=== PATIENT | male | born 1950 | race Caucasian/White ===

== ENCOUNTER 2024-06-10 21:29 | Inpatient (IN) | payer OTHER, MEDICARE ==
[~2024-06-10] VITALS: Ht 180.3 cm; Wt 198.0 kg
[2024-06-10 22:10] VITALS: PULSE 124; RESP 18; O2SAT 99
[2024-06-10 22:52] LABS: Basophils # (auto) 0.1 10 ^3/uL (0-0.2); Basophils % (auto) 0.6 % (0.0-2.0); Eosinophils # (auto) 0.1 10 ^3/uL (0-0.8); Eosinophils % (auto) 0.6 % (0.0-7.0); Hematocrit 44.3 % (41.0-53.0); Hemoglobin 14.7 g/dL (13.5-17.5); Lymphocytes # (auto) 1.2 10 ^3/uL (0.4-5.4); Lymphocytes % (auto) 12.7 % (10.0-50.0); Mean Corpuscular Hemoglobin 26.8 pg (28.0-32.0); Mean Corpuscular Hgb Conc. 33.1 g/dL (32.0-36.0); Mean Corpuscular Volume 80.9 fL (80.0-100.0); Monocytes # (auto) 0.8 10 ^3/uL (0-1.3); Monocytes % (auto) 8.5 % (0.0-12.0); Neutrophils # (auto) 7.3 10 ^3/uL (1.6-8.6); Neutrophils % (auto) 77.6 % (37.0-80.0); Nucleated Red Blood Cells % 0.2 %; Platelet Count (auto) 250 10^3/uL (140-450); Red Blood Cells 5.47 10^6/uL (4.5-5.90); Red Cell Distribution Width 16.8 % (11.8-14.3); White Blood Cell 9.5 10^3/uL (4.4-10.8)
[2024-06-10 23:07] LABS: INR 1.41 (0.9-1.15); Prothrombin Time 14.4 sec (9.3-11.8)
[2024-06-10 23:11] LABS: Alanine Aminotransferase 22 U/L (7-40); Anion Gap 8 (5-15); Aspartate Aminotransferase 26 U/L (13-40); BUN/Creatinine Ratio 10.2 (10.0-20.0); Blood Urea Nitrogen 12 mg/dL (9-23); Calcium 9.6 mg/dL (8.7-10.4); Carbon Dioxide 24 mmol/L (20-31); Magnesium 1.9 mg/dL (1.6-2.6); Sodium 143 mmol/L (136-145)
[2024-06-10 23:12] LABS: Alkaline Phosphatase 142 U/L (46-116); Bilirubin, Total 1.5 mg/dL (0.2-1.0); Chloride 111 mmol/L (98-107); Glucose 130 mg/dL (74-106)
[2024-06-10 23:13] LABS: Blood Alcohol < 3.0 mg/dL (<10)
--- NOTE | 2024-06-10 23:37 | DVH ---
CHEST RADIOGRAPH Indication: Dyspnea, generalized weakness Technique: Single frontal view of the chest was obtained Comparison: None FINDINGS: Lines and Tubes: None Lungs: No focal consolidation. Pleura: No effusion. No pneumothorax. Cardiomediastinal contours: cardiomegaly Bones: No acute osseous abnormality. IMPRESSION: cardiomegaly [facility]
[2024-06-10] MEDS: dilTIAZem 25 MG/5 ML VIAL IV ONE (23:47)
[2024-06-10 23:49] LABS: Rapid Influenza A Negative (Negative); Rapid Influenza B Negative (Negative)
[2024-06-10 23:50] LABS: COVID19 ANTIGEN SOFIA FIA NEGATIVE (NEGATIVE)
[2024-06-11] MEDS: dilTIAZem 125mg/125ml BAG KIT 125 ML IV ONE
[2024-06-11] MEDS: SODIUM CHLORIDE 0.9% 500 ML IV ONE (00:04)
--- NOTE | 2024-06-11 00:19 | ED.PDOC ---
History of Present Illness HPI Comments This is a 73-year-old morbidly obese male, with a reported history of previous PE's with Eliquis , hyperlipidemia and cellulitis. Patient denies any other significant past medical history. Patient brought in by ambulance for complaint of shortness of breath with exertion and generalized weakness for the past 4 days, today. Per EMS report, spouse called on patient's behalf, due to ongoing symptoms for the past 4 days following unprovoked and gradual onset in addition to being unable to assist patient out of his recliner. He reported to have been found on scene in AFib RVR, with a rate fluctuating between the 90s to 170s range, in addition to being tachypneic and having a SpO2 of 92% on room air. Patient's remaining vitals were stated to be stable and within normal limits. He was placed on oxygen EN route, with noted improved SpO2 of 97% upon arrival to ED. at time of initial assessment, patient further comments on being sick, recently, with shortness of breath and nonproductive cough, that worsened within the past four days, with additional onset of weakness, which refrained him to use his wheelchair to move around. Patient also informs on recent mice infestation in his home, with endorsement of mice feces and urine exposure. He denies having any chest pain, congestion, fever, chills, nausea, vomiting, or o ther associated symptoms or modifiers at this time. Chief Complaint: Shortness of Breath Time Seen by MD: 21:39 Reviewed Notes: Nurses Notes, Ux Designer Notes, Medications, Allergies Allergies: Coded Allergies: Morphine (Verified Allergy, Unknown, 06/10/24) Information Source: Patient, Emergency Med Personnel Mode of Arrival: EMS Severity: Moderate Timing: Days Duration: Since onset Prehospital treatment: 12 Lead EKG, Accucheck, Construction Trench Digger, Oxygen Review of Systems: REVIEW OF SYSTEMS: No fever, no chills, or fatigue HEENT: No sore throat, no earache, no congestion, no neck pain. Cardiac: No chest pain. No palpitations. Lungs: shortness of breath, no cough. GI: No nausea, no vomiting, no diarrhea, no constipation, no abdominal pain : No dysuria, frequency, or urgency. No hematuria. Musculoskeletal: No joint pain , no joint swelling, no extremity edema. Skin: No rash, no itching. Neuro: Weakness, no headache, no dizziness Vital Signs Vital Signs Date Time Temp Pulse Resp B/P (MAP) Pulse Ox O2 Delivery O2 Flow Rate FiO2 06/11/24 02:23 152/94 06/11/24 01:46 101 06/11/24 00:00 18 98 06/10/24 21:29 98.2 Physical Exam General: Awake, alert and oriented. No acute distress. Morbidly obese Skin: Skin in warm, dry and intact. Appropriate color for ethnicity. HEENT: The head is normocephalic and atraumatic. Conjunctivae are clear without exudates or hemorrhage. Sclera is non-icteric. EOM are intact. No signs of nystagmus. Eyelids are normal in appearance without swelling or lesions. Oral mucosa is pink and moist Neck: The neck is supple with normal range of motion. No JVD. Cardiac: Heart rate and rhythm are normal. No murmurs, gallops, or rubs are auscultated. Respiratory: No signs of respiratory distress. Lung sounds are clear in all lobes bilaterally without rales, ronchi, or wheezes. Abdominal: Abdomen is soft, non-tender without distention. Bowel sounds are present and normoactive in all four quadrants. Extremities: Upper and lower extremities are atraumatic in appearance without deformity or edema. Neurological: The patient is awake, alert and oriented to person, place, and time with normal speech. Speech is clear. There is no facial asymmetry. Psychiatric: Appropriate mood and affect. Good judgement and insight. No visual or auditory hallucinations. Past Medical History PAST MEDICAL HISTORY: High Lipids, PE Past Medical History (Other): Morbid obesity Surgical History: Denies all surgeries Family History Family History: Unknown Social History Smoker: Non-Smoker Alcohol: Denies ETOH Use Drugs: Denies Drug Use Lives In: Home, Assisted Care Was a procedure done? Was a procedure done?: No EKG EKG #1: Pulse Rate (adult): 135 [place]: Normal Cardiac Rhythm: Afib Block: None Hypertrophy: None ST: Normal EKG #2: Pulse Rate (adult): 125 [place]: Normal Cardiac Rhythm: ST Block: None Hypertrophy: None ST: Normal EKG #3: Pulse Rate (adult): 101 [place]: Normal Cardiac Rhythm: ST Block: None Hypertrophy: None ST: Normal Differential Dx Considerations may include: New onset AFib, electrolyte imbalance, viral syndrome, dehydration, UTI, URI, pneumonia, among others X-Ray, Labs, Meds, VS Vital Signs Date Time Temp Pulse Resp B/P (MAP) Pulse Ox O2 Delivery O2 Flow Rate FiO2 06/11/24 02:23 152/94 06/11/24 01:46 101 06/11/24 00:22 101 06/11/24 00:00 94 18 123/84 (97) 98 06/11/24 00:00 145/79 06/11/24 00:00 94 06/10/24 22:27 125 06/10/24 22:09 124 18 119/79 (92) 99 06/10/24 21:35 135 06/10/24 21:29 98.2 152 24 132/91 (105) 97 Lab Test 06/11/24 01:48 06/11/24 00:24 06/10/24 23:20 06/10/24 23:13 Range/Units Troponin I High Sensitivity 26 28 </=54 ng/L Blood Gas Specimen Type Arterial Blood Gas Sample Site Right radial Blood Gas Patient Temperature 37.0 Arterial Blood Date Drawn [id number] Arterial Blood pH 7.409 7.350-7.450 Arterial Blood Partial Pressure CO2 34.8 L 35.0-48.0 mmHg Arterial Blood Partial Pressure O2 74.9 L 83.0-108.0 mmHg Arterial Blood HCO3 21.5 21.0-28.0 mmol/L Arterial Blood Oxygen Saturation 94.5 94.0-98.0 % Arterial Blood Base Excess -2.4 L -2.0-3.0 mmol/L Arterial Blood Oxyhemoglobin 92.6 L 94.0-98.0 % Arterial Blood Carboxyhemoglobin 1.4 0.5-1.5 % Arterial Blood Methemoglobin 0.6 0.0-1.5 % Devante Test Modified Blood Gas Total Hemoglobin 15.40 13.5-17.5 g/dL Blood Gas Liter Flow 2.00 Blood Gas Modality Nasal cannula FiO2 % 24.0 Urine Color Yellow Yellow Urine Clarity Turbid H Clear Urine pH 5.0 5.0-9.0 Urine Specific [place] 1.029 1.001-1.035 Urine Protein 1+ H Negative Urine Ketones Trace Negative Urine Blood 2+ H Negative /uL Urine Nitrite Negative Negative Urine Bilirubin Negative Negative Urine Urobilinogen Normal Negative mg/dL Urine Leukocyte Esterase Negative Negative /uL Urine RBC 240 0 - 3 /hpf Urine Microscopic WBC 2 0-3 /HPF Urine Squamous Epithelial Cells Mod <5 /hpf Urine Bacteria Few H None Seen /hpf Urine Mucus Few None Seen Urine Glucose Normal Normal mg/dL Urine Opiates Screen Neg NEGATIVE Urine Fentanyl Screen Neg NEGATIVE Urine Barbiturates Screen Neg NEGATIVE Urine Phencyclidine Screen Neg NEGATIVE Urine Amphetamines Screen Neg NEGATIVE Urine Benzodiazepines Screen Neg NEGATIVE Urine Cocaine Screen Neg NEGATIVE Urine Cannabinoids Screen Pos NEGATIVE Influenza Type A Antigen Negative Negative Influenza Type B Antigen Negative Negative SARS-CoV-2 Antigen (Rapid) Negative NEGATIVE Test 06/10/24 22:35 Range/Units White Blood Count 9.5 4.4-10.8 10^3/uL Red Blood Count 5.47 4.5-5.90 10^6/uL Hemoglobin 14.7 13.5-17.5 g/dL Hematocrit 44.3 41.0-53.0 % Mean Corpuscular Volume 80.9 80.0-100.0 fL Mean Corpuscular Hemoglobin 26.8 L 28.0-32.0 pg Mean Corpuscular Hemoglobin Concent 33.1 32.0-36.0 g/dL Red Cell Distribution Width 16.8 H 11.8-14.3 % Platelet Count 250 140-450 10^3/uL Mean Platelet Volume 9.6 6.9-10.8 fL Neutrophils (%) (Auto) 77.6 37.0-80.0 % Lymphocytes (%) (Auto) 12.7 10.0-50.0 % Monocytes (%) (Auto) 8.5 0.0-12.0 % Eosinophils (%) (Auto) 0.6 0.0-7.0 % Basophils (%) (Auto) 0.6 0.0-2.0 % Neutrophils # (Auto) 7.3 1.6-8.6 10 ^3/uL Lymphocytes # (Auto) 1.2 0.4-5.4 10 ^3/uL Monocytes # (Auto) 0.8 0-1.3 10 ^3/uL Eosinophils # (Auto) 0.1 0-0.8 10 ^3/uL Basophils # (Auto) 0.1 0-0.2 10 ^3/uL Nucleated Red Blood Cells 0.2 % Prothrombin Time 14.4 H 9.3-11.8 sec Prothrombin Time INR 1.41 H 0.9-1.15 Sodium Level 143 136-145 mmol/L Potassium Level 4.0 3.5-5.1 mmol/L Chloride Level 111 H 98-107 mmol/L Carbon Dioxide Level 24 20-31 mmol/L Anion Gap 8 5-15 Blood Urea Nitrogen 12 9-23 mg/dL Creatinine 1.18 0.700-1.30 mg/dL Glomerular Filtration Rate Calc 65 >90 mL/min BUN/Creatinine Ratio 10.2 10.0-20.0 Serum Glucose 130 H 74-106 mg/dL Lactic Acid Level 1.6 0.4-2.0 mmol/L Calcium Level 9.6 8.7-10.4 mg/dL Magnesium Level 1.9 1.6-2.6 mg/dL Total Bilirubin 1.5 H 0.2-1.0 mg/dL Aspartate Amino Transferase (AST) 26 13-40 U/L Alanine Aminotransferase (ALT) 22 7-40 U/L Alkaline Phosphatase 142 H 46-116 U/L Troponin I High Sensitivity 30 </=54 ng/L B-Type Natriuretic Peptide 294.26 0-100 pg/mL Total Protein 7.0 5.7-8.2 g/dL Albumin 4.0 3.2-4.8 g/dL Thyroid Stimulating Hormone (TSH) 1.86 0.55-4.78 uIU/mL Plasma/Serum Blood Alcohol < 3.0 <10 mg/dL Current Medications Medications (Trade) Dose Ordered Sig/Nidia Route Start Time Stop Time Status Last Admin Sodium Chloride 500 ml @ 500 mls/hr Q1H ONCE IV 06/10/24 22:15 06/10/24 23:14 DC 06/11/24 00:04 Diltiazem HCl (Cardizem Injection) 15 mg ONCE ONCE IV 06/10/24 23:30 06/10/24 23:31 DC 06/10/24 23:47 Furosemide (Lasix Injection) 40 mg ONCE ONCE IV 06/11/24 01:00 06/11/24 01:01 DC 06/11/24 02:23 Amiodarone HCl 100 ml @ 600 mls/hr ONCE ONCE IV 06/11/24 03:00 06/11/24 03:09 DC 06/11/24 03:18 Time of 1ST Reevaluation: 22:11 Reevaluation 1ST: Unchanged Patient Education/Counseling: Diagnosis, Treatment Family Education/Counseling: No Family Present Departure 1 Departure Time of Disposition: 00:17 Impression: Primary Impression: New onset a-fib Additional Impressions: Generalized weakness Inability to walk Congestive heart failure Disposition: ADMITTED INPATIENT Condition: Stable Comments 73-year-old male with history of PE, on Eliquis presents to the emergency department with 4 days of generalized weakness, unable to ambulate. He was found to be in new onset rapid AFib with a heart rate of 130s on arrival to the emergency department. No history of AFib. Patient's heart rate converted to sinus after Cardizem bolus. Further workup revealed cardiomegaly, changes suggestive of CHF on chest x-ray as well as mildly elevated BNP. IV Lasix was administered. Patient admitted for further treatment, evaluation and mon itoring. Suspect possible viral pulmonary infection. Extensive evaluation was performed in attempt to identify or rule out: (See differential diagnosis section) The following tests were ordered, and results were reviewed by me: (See diagnostic results section) The following test were independently interpreted by me: N/A I reviewed and agreed with the following test results read by other providers: N/A I reviewed the following notes from the pt's past medical encounters: N/A Additional information was gathered from interviewing the following independent historians: EMS Discussion of management or test interpretation with external physician/other qualified health acute care nurse practitioner: EMS personnel Addressed an acute or chronic illness that poses a threat to life or bodily function: AFib with RVR, CHF exacerbation Decision regarding hospitalization or escalation of hospital level of care: Risk and benefits of admission for further treatment of patient's condition was considered. Due to patient's current clinical condition, high risk of decline and poor outcome if discharged and need for further inpatient management and monitoring, patient will be admitted to the hospital. Drug therapy requiring intensive monitoring for toxicity: IV amiodarone, IV Cardizem, IV Lasix Parenteral controlled substances: N/A Decision regarding elective major surgery with identified patient or procedure risk factors: N/A Decision regarding emergency major surgery: N/A Decision not to resuscitate or to de-escalate care because of poor prognosis: N/A Diagnosis or treatment significantly limited by social determinants of health: N/A Critical Care Note Critical Care Time?: No Stability Stability form required: No Heart Score Heart Score: Heart Score Response (Comments) Value History Moderate Suspicious 1 EKG N/A 0 Age >65 2 Risk Factors >3 or Hx ASHD 2 Troponin Normal limit 0 Total 5 I personally scribed for JOVITA FREITAS MD ([email or web address]) on 06/11/24 at 01:46. Electronically submitted by Jesus Goldberg ([email or web address]). JOVITA FREITAS MD Jun 11, 2024 00:19
[2024-06-11 00:34] LABS: Base Excess -2.4 mmol/L (-2.0-3.0)
[2024-06-11 02:12] LABS: Cannabinoid Screen, Urine Pos (NEGATIVE)
[2024-06-11] MEDS: FUROSEMIDE 40 MG/4 ML VIAL IV ONE (02:23)
[2024-06-11 02:27] LABS: Amphetamine Screen, Urine Neg (NEGATIVE); Barbiturate Scree,Urine Neg (NEGATIVE); Benzodiazephine Screen, Urine Neg (NEGATIVE); Cocaine Screen, Urine Neg (NEGATIVE); Opiate Scree,Urine Neg (NEGATIVE); Phencyclidine Screen, Urine Neg (NEGATIVE)
[2024-06-11 02:29] LABS: Urine Bacteria FEW /hpf (None Seen); Urine Blood 2+ /uL (Negative); Urine Clarity Turbid (Clear); Urine Color Yellow (Yellow); Urine Mucus FEW (None Seen); Urine Protein, UAD 1+ (Negative); Urine Specific Gravity 1.029 (1.001-1.035); Urine Squamous Epithelial Cell MOD /hpf (<5); Urine Urobilinogen Normal (Negative); Urine WBC 2 /HPF (0-3)
[2024-06-11] MEDS: AMIODARONE BOLUS KIT 100 ML IV ONE (03:18)
[2024-06-11] MEDS ORDERED: ONDANSETRON HCL 4 MG/2 ML VIAL IV PRN (03:45)
[2024-06-11] MEDS ORDERED: NITROGLYCERIN 0.4 MG SL TAB SL PRN (03:45)
[2024-06-11] MEDS ORDERED: MORPHINE SULFATE INJ 2 MG/ml SYRG IV PRN (03:45)
[2024-06-11] MEDS ORDERED: ACETAMINOPHEN 325 MG TAB PO PRN (03:45)
--- NOTE | 2024-06-11 03:54 | ECG ---
[facility] Test Date: 2024-06-10 Test Time: 21:35:46 Pat Name: FEROZ FLORES Department: ER Room: 0214T Gender: M Chief Of Service: CMR : 1950 Requested By: JOVITA FREITAS Order Number: [id number] Reading MD: Jl Menezes Measurements Intervals Watson Rate: 135 P: 0 HI: 0 QRS: 189 QRSD: 102 T: 52 QT: 331 QTc: 497 Interpretive Statements Atrial fibrillation Anterior infarct, old Electronically Signed On 06-15-2024 22:59:24 PDT by Jl Menezes Please click the below link to view image of tracing.
--- NOTE | 2024-06-11 03:55 | ECG ---
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
[2024-06-11] MEDS: AMIODARONE 360mg/200mL PREMIX 200 ML IV ONE (04:23)
--- NOTE | 2024-06-11 04:28 | DVHHP2 ---
History of Present Illness Reason for Visit: Shortness for breath History of Present Illness 73-year-old male presents for evaluation of shortness for breath has been ongoing for the past four days. He reports generalized weakness and occasional palpitations. On arrival patient was noted to be in AFib with RVR in the 160s. Patient was saturating in the low 90s on room air. Denies fever or chills. Patient with a history of pulmonary embolism currently on Eliquis. No other acute complaints. Past Medical History Dyslipidemia and pulmonary embolism Past Surgical History None Family History Noncontributory Smoke: No ALCOHOL: none Drugs: None Lives: with Family Review of Systems Review of Systems Review of systems are currently negative otherwise addressed in HPI. Allergies: Coded Allergies: Morphine (Verified Allergy, Unknown, 06/10/24) Medications Current Medications Medications Dose Ordered Sig/Nidia Route Start Time Stop Time Status Last Admin Dose Admin Furosemide 40 mg DAILY PO 06/11/24 10:00 Ondansetron HCl 4 mg Q4HP PRN IV 06/11/24 03:45 Acetaminophen 650 mg Q6HP PRN PO 06/11/24 03:45 Nitroglycerin 0.4 mg Q5MINP PRN SL 06/11/24 03:45 Morphine Sulfate 2 mg Q30M PRN IV 06/11/24 03:45 UNV Exam Vital Signs Vital Signs Date Time Temp Pulse Resp B/P (MAP) Pulse Ox O2 Delivery O2 Flow Rate FiO2 06/11/24 02:23 152/94 06/11/24 01:46 101 06/11/24 00:00 18 98 06/10/24 21:29 98.2 Exam Gen: 73-year-old male in mild distress, morbidly obese. Skin: Warm, dry, normal color and texture, no rash. HEENT: Normocephalic atraumatic, mucous membranes moist and pink. Neck: Cervical and supraclavicular nodes normal without enlargement, trachea is midline, thyroid gland is normal without masses. Pulmonary: Clear to auscultation and percussion bilaterally. Cardiac: Irregular rhythm Abdomen: Soft, nontender, nondistended, bowel sounds present all 4 quadrants, no guarding, no rigidity, no organomegaly. Extremities: No cyanosis, clubbing, no edema Neuro: Cranial nerves II through XII grossly intact, normal affect and speech, no focal motor deficits. Labs/Xrays ORDERING PHYSICIAN: JOVITA FREITAS MD PROCEDURE(s): CXR1 - CHEST XRAY 1 VIEW REASON: Dyspnea, generalized weakness ORDER NUMBER(s): [id number], ACCESSION NUMBER(s): [id number] CHEST RADIOGRAPH Indication: Dyspnea, generalized weakness Technique: Single frontal view of the chest was obtained Comparison: None FINDINGS: Lines and Tubes: None Lungs: No focal consolidation. Pleura: No effusion. No pneumothorax. Cardiomediastinal contours: cardiomegaly Bones: No acute osseous abnormality. IMPRESSION: cardiomegaly [facility] Labs Test 06/11/24 01:48 06/11/24 00:24 06/10/24 23:13 06/10/24 22:35 Range/Units Troponin I High Sensitivity 26 </=54 ng/L Blood Gas Specimen Type Arterial Blood Gas Sample Site Right radial Blood Gas Patient Temperature 37.0 Arterial Blood Date Drawn [id number] Arterial Blood pH 7.409 7.350-7.450 Arterial Blood Partial Pressure CO2 34.8 L 35.0-48.0 mmHg Arterial Blood Partial Pressure O2 74.9 L 83.0-108.0 mmHg Arterial Blood HCO3 21.5 21.0-28.0 mmol/L Arterial Blood Oxygen Saturation 94.5 94.0-98.0 % Arterial Blood Base Excess -2.4 L -2.0-3.0 mmol/L Arterial Blood Oxyhemoglobin 92.6 L 94.0-98.0 % Arterial Blood Carboxyhemoglobin 1.4 0.5-1.5 % Arterial Blood Methemoglobin 0.6 0.0-1.5 % Devante Test Modified Blood Gas Total Hemoglobin 15.40 13.5-17.5 g/dL Blood Gas Liter Flow 2.00 Blood Gas Modality Nasal cannula FiO2 % 24.0 Urine Color Yellow Yellow Urine Clarity Turbid H Clear Urine pH 5.0 5.0-9.0 Urine Specific [place] 1.029 1.001-1.035 Urine Protein 1+ H Negative Urine Ketones Trace Negative Urine Blood 2+ H Negative /uL Urine Nitrite Negative Negative Urine Bilirubin Negative Negative Urine Urobilinogen Normal Negative mg/dL Urine Leukocyte Esterase Negative Negative /uL Urine RBC 240 0 - 3 /hpf Urine Microscopic WBC 2 0-3 /HPF Urine Squamous Epithelial Cells Mod <5 /hpf Urine Bacteria Few H None Seen /hpf Urine Mucus Few None Seen Urine Glucose Normal Normal mg/dL Urine Opiates Screen Neg NEGATIVE Urine Fentanyl Screen Neg NEGATIVE Urine Barbiturates Screen Neg NEGATIVE Urine Phencyclidine Screen Neg NEGATIVE Urine Amphetamines Screen Neg NEGATIVE Urine Benzodiazepines Screen Neg NEGATIVE Urine Cocaine Screen Neg NEGATIVE Urine Cannabinoids Screen Pos NEGATIVE Influenza Type A Antigen Negative Negative Influenza Type B Antigen Negative Negative SARS-CoV-2 Antigen (Rapid) Negative NEGATIVE White Blood Count 9.5 4.4-10.8 10^3/uL Red Blood Count 5.47 4.5-5.90 10^6/uL Hemoglobin 14.7 13.5-17.5 g/dL Hematocrit 44.3 41.0-53.0 % Mean Corpuscular Volume 80.9 80.0-100.0 fL Mean Corpuscular Hemoglobin 26.8 L 28.0-32.0 pg Mean Corpuscular Hemoglobin Concent 33.1 32.0-36.0 g/dL Red Cell Distribution Width 16.8 H 11.8-14.3 % Platelet Count 250 140-450 10^3/uL Mean Platelet Volume 9.6 6.9-10.8 fL Neutrophils (%) (Auto) 77.6 37.0-80.0 % Lymphocytes (%) (Auto) 12.7 10.0-50.0 % Monocytes (%) (Auto) 8.5 0.0-12.0 % Eosinophils (%) (Auto) 0.6 0.0-7.0 % Basophils (%) (Auto) 0.6 0.0-2.0 % Neutrophils # (Auto) 7.3 1.6-8.6 10 ^3/uL Lymphocytes # (Auto) 1.2 0.4-5.4 10 ^3/uL Monocytes # (Auto) 0.8 0-1.3 10 ^3/uL Eosinophils # (Auto) 0.1 0-0.8 10 ^3/uL Basophils # (Auto) 0.1 0-0.2 10 ^3/uL Nucleated Red Blood Cells 0.2 % Prothrombin Time 14.4 H 9.3-11.8 sec Prothrombin Time INR 1.41 H 0.9-1.15 Sodium Level 143 136-145 mmol/L Potassium Level 4.0 3.5-5.1 mmol/L Chloride Level 111 H 98-107 mmol/L Carbon Dioxide Level 24 20-31 mmol/L Anion Gap 8 5-15 Blood Urea Nitrogen 12 9-23 mg/dL Creatinine 1.18 0.700-1.30 mg/dL Glomerular Filtration Rate Calc 65 >90 mL/min BUN/Creatinine Ratio 10.2 10.0-20.0 Serum Glucose 130 H 74-106 mg/dL Lactic Acid Level 1.6 0.4-2.0 mmol/L Calcium Level 9.6 8.7-10.4 mg/dL Magnesium Level 1.9 1.6-2.6 mg/dL Total Bilirubin 1.5 H 0.2-1.0 mg/dL Aspartate Amino Transferase (AST) 26 13-40 U/L Alanine Aminotransferase (ALT) 22 7-40 U/L Alkaline Phosphatase 142 H 46-116 U/L B-Type Natriuretic Peptide 294.26 0-100 pg/mL Total Protein 7.0 5.7-8.2 g/dL Albumin 4.0 3.2-4.8 g/dL Thyroid Stimulating Hormone (TSH) 1.86 0.55-4.78 uIU/mL Plasma/Serum Blood Alcohol < 3.0 <10 mg/dL Assessment/Plan Assessment/Plan Assessment AFib with RVR, new onset Possible congestive heart failure history of pulmonary embolism with a secondary coagulopathy Morbid obesity Plan Admit the patient to ICU hospitalist Continue diltiazem drip Resume home medications Cardiology consultation Continue treatment per orders. Plan discussed with: Patient My Orders Orders - MIKE UPTON Procedure Category Date Status Time * Cardiology Consult CONS 06/11/24 Transmitted 03:45 Basic Metabolic Panel LAB 06/12/24 Verified 04:00 Furosemide Tablet PHA 06/11/24 In Process (Lasix Tablet) 10:00 Admit ADMIT 06/11/24 Transmitted 03:45 Ondansetron Hcl PHA 06/11/24 In Process (Zofran) 03:45 Cardiac DIET 06/11/24 Transmitted Diet-2gna,Lofat,Lochol Breakfast Echo 2d Mode Cardiac US 06/11/24 Logged DOP 03:45 Condition: Serious SAUL 06/11/24 In Process 03:45 Acetaminophen Tablet PHA 06/11/24 In Process (Tylenol Tablet) 03:45 Bedrest With Bathroom [facility] 06/11/24 In Process Privileg 03:45 Nitroglycerin [facility] 06/11/24 In Process Sublingual (Ntrostat 03:45 Morphine Sulfate [facility] 06/11/24 Pending Injection 03:45 Stat Ekg For Chest [facility] 06/11/24 In Process Pain 03:45 Notify Md Of Changes [facility] 06/11/24 In Process From Base 03:45 Spring Assembler Supervisor For [facility] 06/11/24 In Process 24 Hours 03:45 Emergency Dysrhythmia [facility] 06/11/24 In Process Protocol 03:45 Rhythm Strips Once [facility] 06/11/24 In Process Every Shift 03:45 Oxygen By Nasal RT 06/11/24 Transmitted Cannula 03:45 Date of Service: Jun 11, 2024 Billing Provider: MIKE UPTON Common Visit Codes: [id number] CARE 30-74 MIN MIKE UPTON Jun 11, 2024 04:28
[2024-06-11] MEDS: GABAPENTIN 100 MG CAP PO SCH (06:07)
[2024-06-11] MEDS: FUROSEMIDE 40 MG TAB PO SCH (10:27)
[2024-06-11] MEDS: APIXABAN 5 MG TAB PO SCH (10:27)
--- NOTE | 2024-06-11 11:32 | DVHINCON2 ---
VAHID GRIJALVA [facility] 06/11/24 1132: Date Seen: Jun 11, 2024 Referring Physician LOLITA Restrepo Reason for Consultation A-fib with RVR History of Present Illness This is a pleasant 73-year-old man who presented to the emergency room via EMS with a chief complaint of shortness of breath for one month. The patient complains of progressive shortness of breath associated with nonproductive cough, PND, VELAZQUEZ, dizziness, and bilateral lower extremity edema/erythema. Denies chest pain, palpitations, diaphoresis, or syncopal events. He underwent multiple 12 lead electrocardiograms revealing an atrial fibrillation rhythm with rapid ventricular rate up to 135 bpm. Serial troponin levels are negative. Denies following up with a cash clerk in the outpatient setting. Significant medical history includes history of bilateral PE diagnosed in 2011 with initial warfarin therapy and transitioned to Xarelto 20 mg HS, dyslipidemia, THAO with CPAP HS with discontinuation three weeks ago, benign prostatic hyperplasia, peripheral neuropathy, cannabinoid use, and morbid obesity. Past Medical History Past medical history reviewed. No other significant than mentioned above. Past Surgical History Left knee x2 Right knee x1 Right carpal tunnel Family History Family history reviewed. Social History Denies the use of alcohol or tobacco use. Admits to cannabinoid use. Allergies: Coded Allergies: Morphine (Verified Allergy, Unknown, 06/10/24) Home Meds Reported Medications Atorvastatin Calcium (ATORVASTATIN CALCIUM) 40 Mg Tab, 1 TAB PO DAILY, #30 TAB 5 Refills 06/11/24 Cyclobenzaprine Hcl (Cyclobenzaprine Hcl) 10 Mg Tab, 5 MG PO Q8HP PRN for FOR MUSCLE SPASM, MG 06/11/24 Rivaroxaban (XARELTO) 20 Mg Tab, 20 MG PO DAILY, TAB 06/11/24 Pregabalin (Lyrica) 100 Mg Cap, 1 CAP PO TID, #90 CAP 06/11/24 Trazodone Hcl (Trazodone Hcl) 50 Mg Tab, 50 MG PO Q8HPRN PRN for PAIN SCALE 1 THRU 6, MG 06/11/24 Tamsulosin Hcl (Tamsulosin Hcl) 0.4 Mg Cap, 0.4 MG PO QPM for 30 Days, MG 06/11/24 Potassium Citrate (Potassium Citrate) 1,080 Mg Tab, 2 TAB PO BID, #360 TAB 3 Re fills 06/11/24 Duloxetine HCl (Duloxetine HCl) 30 Mg Cap, 30 MG PO DAILY, CAP 06/11/24 Rivaroxaban (Xarelto Tablet) 20 Mg Tb, 20 MG PO DAILY, TAB 06/11/24 Home Meds Home medications reviewed. Current Medications Current Medications Medications (Trade) Dose Ordered Sig/Nidia Route PRN Reason Start Time Stop Time Status Last Admin Furosemide (Lasix Tablet) 40 mg DAILY PO 06/11/24 10:00 06/11/24 10:27 Ondansetron HCl (Zofran) 4 mg Q4HP PRN IV NAUSEA / VOMITING 06/11/24 03:45 Acetaminophen (Tylenol Tablet) 650 mg Q6HP PRN PO PAIN SCALE 1-3 OR TEMP>100.4 06/11/24 03:45 Nitroglycerin (Ntrostat Sublingual) 0.4 mg Q5MINP PRN SL FOR CHEST PAIN 06/11/24 03:45 Morphine Sulfate 2 mg Q30M PRN IV FOR CHEST PAIN 06/11/24 03:45 Hold Apixaban (Eliquis) 5 mg BID PO 06/11/24 10:00 06/11/24 10:27 Atorvastatin Calcium (Lipitor) 40 mg HS PO 06/11/24 22:00 Gabapentin (Neurontin Capsule) 100 mg TID PO 06/11/24 06:00 06/11/24 06:07 Review of Systems Constitutional: No symptom reported Ears, Nose, & Throat: No symptom reported Eyes: No symptom reported Neurological: No symptoms reported Pulmonary/Respiratory: SOB, VELAZQUEZ, PND, BLE edema Cardiovascular: No symptom reported Gastrointestinal: No symptom reported Genitourinary: No symptom reported Musculoskeletal: No symptom reported Skin: BLE erythema Psychiatric: No symptom reported Endocrine: No symptom reported Hemotologic/Lymphatic: No symptom reported Vital Signs Vital Signs Date Time Temp Pulse Resp B/P (MAP) Pulse Ox O2 Delivery O2 Flow Rate FiO2 06/11/24 10:27 145/97 06/11/24 09:00 115 15 96 06/11/24 08:54 Room Air* 0 21 Physical Exam General Appearance: Cooperative. Well developed. Morbidly obese. Mild acute respiratory distress Head Exam: Normal inspection Neck Exam: Normal inspection. Non-tender. Normal alignment Pulmonary/Respiratory: Chest non-tender. Crackles to bilateral breath sounds Cardiovascular/Chest: Irregularly irregular rate and rhythm. AFib 100s bpm. No murmurs. No JVD. Peripheral Pulses: 2+ Radial (R). 2+ Radial (L). 2+ Pedal (R). 2+ Pedal (L) Abdominal Exam: Normal bowel sounds. Soft. Nontender. Ankle Exam: Positive ankle edema, nonpitting Lower extremities: Positive lower extremity edema, nonpitting Neuro/Mental Status: A&O x4. Coherent Thoughts/Psych: Normal thought pattern. Appropriate mood and affect. Good judgement and insight Appearance: Mild acute respiratory distress Skin Exam: BLE erythema and wounds present. See wound care pictures Labs/Diagnostic Data Labs Test 06/11/24 01:48 06/11/24 00:24 06/10/24 23:13 06/10/24 22:35 Range/Units Troponin I High Sensitivity 26 </=54 ng/L Blood Gas Specimen Type Arterial Blood Gas Sample Site Right radial Blood Gas Patient Temperature 37.0 Arterial Blood Date Drawn [id number] Arterial Blood pH 7.409 7.350-7.450 Arterial Blood Partial Pressure CO2 34.8 L 35.0-48.0 mmHg Arterial Blood Partial Pressure O2 74.9 L 83.0-108.0 mmHg Arterial Blood HCO3 21.5 21.0-28.0 mmol/L Arterial Blood Oxygen Saturation 94.5 94.0-98.0 % Arterial Blood Base Excess -2.4 L -2.0-3.0 mmol/L Arterial Blood Oxyhemoglobin 92.6 L 94.0-98.0 % Arterial Blood Carboxyhemoglobin 1.4 0.5-1.5 % Arterial Blood Methemoglobin 0.6 0.0-1.5 % Devante Test Modified Blood Gas Total Hemoglobin 15.40 13.5-17.5 g/dL Blood Gas Liter Flow 2.00 Blood Gas Modality Nasal cannula FiO2 % 24.0 Urine Color Yellow Yellow Urine Clarity Turbid H Clear Urine pH 5.0 5.0-9.0 Urine Specific [place] 1.029 1.001-1.035 Urine Protein 1+ H Negative Urine Ketones Trace Negative Urine Blood 2+ H Negative /uL Urine Nitrite Negative Negative Urine Bilirubin Negative Negative Urine Urobilinogen Normal Negative mg/dL Urine Leukocyte Esterase Negative Negative /uL Urine RBC 240 0 - 3 /hpf Urine Microscopic WBC 2 0-3 /HPF Urine Squamous Epithelial Cells Mod <5 /hpf Urine Bacteria Few H None Seen /hpf Urine Mucus Few None Seen Urine Glucose Normal Normal mg/dL Urine Opiates Screen Neg NEGATIVE Urine Fentanyl Screen Neg NEGATIVE Urine Barbiturates Screen Neg NEGATIVE Urine Phencyclidine Screen Neg NEGATIVE Urine Amphetamines Screen Neg NEGATIVE Urine Benzodiazepines Screen Neg NEGATIVE Urine Cocaine Screen Neg NEGATIVE Urine Cannabinoids Screen Pos NEGATIVE Influenza Type A Antigen Negative Negative Influenza Type B Antigen Negative Negative SARS-CoV-2 Antigen (Rapid) Negative NEGATIVE White Blood Count 9.5 4.4-10.8 10^3/uL Red Blood Count 5.47 4.5-5.90 10^6/uL Hemoglobin 14.7 13.5-17.5 g/dL Hematocrit 44.3 41.0-53.0 % Mean Corpuscular Volume 80.9 80.0-100.0 fL Mean Corpuscular Hemoglobin 26.8 L 28.0-32.0 pg Mean Corpuscular Hemoglobin Concent 33.1 32.0-36.0 g/dL Red Cell Distribution Width 16.8 H 11.8-14.3 % Platelet Count 250 140-450 10^3/uL Mean Platelet Volume 9.6 6.9-10.8 fL Neutrophils (%) (Auto) 77.6 37.0-80.0 % Lymphocytes (%) (Auto) 12.7 10.0-50.0 % Monocytes (%) (Auto) 8.5 0.0-12.0 % Eosinophils (%) (Auto) 0.6 0.0-7.0 % Basophils (%) (Auto) 0.6 0.0-2.0 % Neutrophils # (Auto) 7.3 1.6-8.6 10 ^3/uL Lymphocytes # (Auto) 1.2 0.4-5.4 10 ^3/uL Monocytes # (Auto) 0.8 0-1.3 10 ^3/uL Eosinophils # (Auto) 0.1 0-0.8 10 ^3/uL Basophils # (Auto) 0.1 0-0.2 10 ^3/uL Nucleated Red Blood Cells 0.2 % Prothrombin Time 14.4 H 9.3-11.8 sec Prothrombin Time INR 1.41 H 0.9-1.15 Sodium Level 143 136-145 mmol/L Potassium Level 4.0 3.5-5.1 mmol/L Chloride Level 111 H 98-107 mmol/L Carbon Dioxide Level 24 20-31 mmol/L Anion Gap 8 5-15 Blood Urea Nitrogen 12 9-23 mg/dL Creatinine 1.18 0.700-1.30 mg/dL Glomerular Filtration Rate Calc 65 >90 mL/min BUN/Creatinine Ratio 10.2 10.0-20.0 Serum Glucose 130 H 74-106 mg/dL Lactic Acid Level 1.6 0.4-2.0 mmol/L Calcium Level 9.6 8.7-10.4 mg/dL Magnesium Level 1.9 1.6-2.6 mg/dL Total Bilirubin 1.5 H 0.2-1.0 mg/dL Aspartate Amino Transferase (AST) 26 13-40 U/L Alanine Aminotransferase (ALT) 22 7-40 U/L Alkaline Phosphatase 142 H 46-116 U/L B-Type Natriuretic Peptide 294.26 0-100 pg/mL Total Protein 7.0 5.7-8.2 g/dL Albumin 4.0 3.2-4.8 g/dL Thyroid Stimulating Hormone (TSH) 1.86 0.55-4.78 uIU/mL Plasma/Serum Blood Alcohol < 3.0 <10 mg/dL Assessment Acute on chronic decompensated HFrEF, newly diagnosed Atrial fibrillation with rapid ventricular response, newly diagnosed Hx of bilateral PE with current Xarelto therapy (2011) Bilateral lower extremity cellulitis Cannabinoid use Morbid obesity Plan/Recommendation We will continue the following plan/recommendations (Dr. Metcalf): * Echocardiogram to evaluate cardiac function * Preload and afterload reduction as tolerated * Strict I&Os. Daily weight. Fluid restriction * Initiate GDMT for HFrEF, uptitrate as tolerated * Rate control, continue with beta-thomas * NOAC therapy, continue Xarelto therapy * Antiarrhythmics, contraindicated * Replete electrolytes as necessary, K>4 and Mg>2 * Monitor ECG changes and notify * Bilateral lower extremity venous US * Consider ABX therapy, initiated on empiric treatment * Downgrade to Telemetry floor Thank you for allowing us to participate in this patient's care. Please call if you have any questions or concerns. Critical care time: 45 min. This medical document was created using an electronic medical record system with voice recognition software and computerized dictation system. Although this document has been carefully reviewed, there might still be some phonetic and typographical errors. Occasional wrong-word or ``sound-alike substitutions may have occurred due to the inherent limitations of voice recognition software. These areas are purely typographical due to imperfections of the software programs and do not reflect any compromise in the patient's medical care. Please read the chart carefully and recognize, using context, where these substitutions have occurred. Plan discussed with: Patient NYHA Physical activity limitations: Class4(Severe)discomfort (w any activit,symptoms at rest) Date of Service: Jun 11, 2024 Billing Provider: VAHID GRIJALVA Cardiology Common Codes: [id number] CARE 30-74 MIN MALIK METCALF MD 06/11/24 1626: Allergies: Coded Allergies: Morphine (Verified Allergy, Unknown, 06/10/24) Home Meds Reported Medications Atorvastatin Calcium (ATORVASTATIN CALCIUM) 40 Mg Tab, 1 TAB PO DAILY, #30 TAB 5 Refills 06/11/24 Cyclobenzaprine Hcl (Cyclobenzaprine Hcl) 10 Mg Tab, 5 MG PO Q8HP PRN for FOR MUSCLE SPASM, MG 06/11/24 Rivaroxaban (XARELTO) 20 Mg Tab, 20 MG PO DAILY, TAB 06/11/24 Pregabalin (Lyrica) 100 Mg Cap, 1 CAP PO TID, #90 CAP 06/11/24 Trazodone Hcl (Trazodone Hcl) 50 Mg Tab, 50 MG PO Q8HPRN PRN for PAIN SCALE 1 THRU 6, MG 06/11/24 Tamsulosin Hcl (Tamsulosin Hcl) 0.4 Mg Cap, 0.4 MG PO QPM for 30 Days, MG 06/11/24 Potassium Citrate (Potassium Citrate) 1,080 Mg Tab, 2 TAB PO BID, #360 TAB 3 Refills 06/11/24 Duloxetine HCl (Duloxetine HCl) 30 Mg Cap, 30 MG PO DAILY, CAP 06/11/24 Rivaroxaban (Xarelto Tablet) 20 Mg Tb, 20 MG PO DAILY, TAB 06/11/24 Plan/Recommendation phas new afib and chf started on GDMT will need doac rate conrol dc home in1-2 days of diuresis needs to fu wit hVA cards, pt agrees Plan discussed with: Patient VAHID GRIJALVA Jun 11, 2024 11:32 MALIK METCALF MD Jun 11, 2024 16:26
[2024-06-11] MEDS ORDERED: RIV20T PO (11:38)
[2024-06-11] MEDS ORDERED: DULO1CAP5 PO (11:39)
[2024-06-11] MEDS ORDERED: PREG100C PO (11:47)
[2024-06-11] MEDS ORDERED: TAMS0.4C39 PO (11:47)
[2024-06-11] MEDS ORDERED: RIVA20TA PO (11:47)
[2024-06-11] MEDS ORDERED: CYCL-839 PO (11:47)
[2024-06-11] MEDS ORDERED: POTA1080 PO (11:47)
[2024-06-11] MEDS ORDERED: TRAZ-227 PO (11:47)
[2024-06-11] MEDS ORDERED: ATOR40TA52 PO (11:49)
[2024-06-11] MEDS: CARVEDILOL 3.125 MG TAB PO ONE (12:14)
[2024-06-11] MEDS: VALSARTAN 80 MG TAB PO ONE (12:15)
[2024-06-11] MEDS: SPIRONOLACTONE 25 MG TAB PO ONE (12:16)
[2024-06-11] MEDS: MAGNESIUM SULFATE 1GM/100ML 100 ML IV ONE (12:17)
--- NOTE | 2024-06-11 12:23 | DVH ---
BILATERAL LOWER EXTREMITY VENOUS DOPPLER CLINICAL HISTORY: Edema Technique: Duplex Doppler evaluation of the deep venous systems of both lower extremities from the co mmon femoral veins to the popliteal veins including color Doppler and spectral/pulsed waveform analys is was performed. COMPARISON: None FINDINGS: The right and left common femoral, superficial femoral, popliteal, posterior tibial veins appear pa tent with normal augmentation, phasicity, compressibility and color-flow. There are bilateral soft ti ssue edematous changes. IMPRESSION: 1. There is no sonographic evidence for DVT in the lower extremities. HS:Y
[2024-06-11] MEDS: cefTRIAXone 1GM/50ML D5W 50 ML IV ONE (12:34)
[2024-06-11 12:41] LABS: Potassium 4.2 mmol/L (3.5-5.1)
[2024-06-11 12:42] LABS: Anion Gap 12 (5-15); Calcium 9.4 mg/dL (8.7-10.4)
[2024-06-11 12:44] LABS: Carbon Dioxide 18 mmol/L (20-31); Chloride 115 mmol/L (98-107); Sodium 145 mmol/L (136-145)
[2024-06-11 12:47] LABS: BUN/Creatinine Ratio 9.3 (10.0-20.0); Blood Urea Nitrogen 10 mg/dL (9-23); Glucose 124 mg/dL (74-106); Triglycerides 100 mg/dL (< 150)
[2024-06-11 12:48] LABS: LDL Cholesterol 69 mg/dL (< 100)
[2024-06-11 12:49] LABS: Cholesterol 108 mg/dL (< 200)
[2024-06-11 12:50] LABS: HDL Cholesterol 26 mg/dL (40-59)
--- NOTE | 2024-06-11 14:31 | DVHPN2 ---
Progress Note Date Seen: Jun 11, 2024 Medical Necessity Reason Pt with a Central, PICC or Fol: Yes The following are medically ne: Nicolas Catheter Reason for nicolas catheter: Strict I&O Subjective Patient reports: No new complaints Review of Systems: HEENT:Normal, CVS:Normal, RESPIRATORY:Normal, GI:Normal, :Normal, MSK:Normal, NEURO:Normal Objective vital signs Vital Sign Date Time Temp Pulse Resp B/P (MAP) Pulse Ox O2 Delivery O2 Flow Rate FiO2 06/11/24 12:15 145/85 06/11/24 12:14 114 06/11/24 11:00 18 97 06/11/24 09:00 06/11/24 08:54 Room Air* 0 21 Total Intake and Output 06/10/24 06/10/24 06/11/24 14:59 22:59 06:59 Intake Total 618 ml Output Total 1400 ml Balance -782 ml medications Current Medications Medications Dose Ordered Sig/Nidia Route Start Time Stop Time Status Last Admin Dose Admin Ondansetron HCl 4 mg Q4HP PRN IV 06/11/24 03:45 Acetaminophen 650 mg Q6HP PRN PO 06/11/24 03:45 Nitroglycerin 0.4 mg Q5MINP PRN SL 06/11/24 03:45 Morphine Sulfate 2 mg Q30M PRN IV 06/11/24 03:45 Hold Atorvastatin Calcium 40 mg HS PO 06/11/24 22:00 Gabapentin 100 mg TID PO 06/11/24 06:00 06/11/24 12:16 100 MG Rivaroxaban 20 mg QPM PO 06/11/24 18:00 Carvedilol 6.25 mg Q12HR PO 06/11/24 22:00 Empaglifozin 10 mg DAILY PO 06/12/24 10:00 Spironolactone 12.5 mg DAILY PO 06/12/24 10:00 Valsartan 40 mg DAILY PO 06/12/24 10:00 Furosemide 40 mg BIDD IV 06/11/24 18:00 Ceftriaxone Sodium 50 ml @ 100 mls/hr DAILY@09 IV 06/12/24 09:00 Examination: GENERAL:Normal, HEENT:Normal, NECK:Normal, LUNGS:Normal, CVS:Normal, ABDOMEN:Normal, MSK:Normal, MSK:Abnormal (EDEMA++, ERYTHEMA), SKIN:Normal, NEURO:Normal, :Normal laboratory and microbiology Laboratory Tests 06/11/24 01:48 06/10/24 22:35 Test 06/11/24 01:48 Range/Units Serum Glucose 124 H 74-106 mg/dL Problem List/Assessment/Plan Problem List/Assessment/Plan #1 acute on chronic systolic/diastolic heart failure: lasix iv, echo #2 cellulitis both legs: iv ancef #3 morbid obesity #4 tuan: on bipap #5 morbid obesity #6 diarrhea: check c diff #7 functional quadriplegia: pt eval #8 h/o pe: on xarelto #9 a fib with rvr: on amiodarone drip #10 bph: on flomax advance care planning- full code-time spent 19 mins Plan discussed with: Patient Date of Service: Jun 11, 2024 Billing Provider: MIKE PEOPLES MD Common Visit Codes: [id number] INP/OBS CARE(HIGH) Secondary Visit Codes: [id number] CARE PLAN 30 MINUTES MIKE PEOPLES MD Jun 11, 2024 14:31
[2024-06-11 14:44] VITALS: BP 100/53; PULSE 105; RESP 18; TEMP 97.3; O2SAT 96
--- NOTE | 2024-06-11 15:12 | DVHSR ---
APPROVED REPORT EXAM: Two-dimensional and M-mode echocardiogram with Doppler, color Doppler and Optison. Blood Pressure: 134/69 mmHg INDICATION EF Contrast Details Indication: Endocardial border delineation RISK FACTORS Obesity: Height: 5'11", Weight: 449 DIMENSIONS LVDd5.7 (3.8-5.7cm)LA (2D)5.1 (1.9-4.0cm)Aortic Root3.4 (2.0-3.7cm) LVDs5.0 (2.5-4.0cm)LA (MM) (1.9-4.0cm)Aortic Cusp Exc2.0 (1.5-2.0cm) EF (%) 26.0 (55-70%)Rt. Atrium (1.9-4.0cm)Asc. Aorta cm IVSd1.2 (0.7-1.1cm)RV (D) (1.8-2.4cm) PWd1.2 (0.7-1.1cm) Mitral Valve MitralMitral Stenosis E wave0.93m/sMV Mean GR.mmHg E/A ratio0.02D MVAcm2 Aortic Valve Aortic ValveAortic Stenosis V10.86m/Adriana Mean GR.3mmHg V21.08m/Adriana Peak GR.5mmHg LVOT Diameter2.3 (1.8-2.4cm)Doppler AVA3.31cm2 Pulmonic Valve V20.71m/s Tricuspid Valve TR Velocity3.08m/s [id number] Other Information Technically limited study due to body habitus and patient position. Conclusion severe LV dysfunction lvef 30% by visual esimate optison used for LV opacifcaition RV dysfunction noted left atrium enlarged mild mild mitral regurg valves limited seen
[2024-06-11] MEDS ORDERED: AMIODARONE 360mg/200mL PREMIX 200 ML IV SCH (17:15)
[2024-06-11 18:30] VITALS: PULSE 81; RESP 20
[2024-06-11 18:54] VITALS: BP 114/65; PULSE 75; TEMP 98; O2SAT 94
[2024-06-11] MEDS: RIVAROXABAN 20 MG TAB PO SCH (19:05)
[2024-06-11] MEDS: FUROSEMIDE 40 MG/4 ML VIAL IV SCH (19:05)
[2024-06-11 20:00] VITALS: PULSE 108
[2024-06-11 21:00] VITALS: BP 119/57; PULSE 59; RESP 15; TEMP 97.4; O2SAT 94
[2024-06-11] MEDS: ceFAZolin 1GM/50ML 50 ML IV SCH (22:00)
[2024-06-11] MEDS: CARVEDILOL 3.125 MG TAB PO SCH (22:00)
[2024-06-11] MEDS: ATORVASTATIN 20 MG TAB PO SCH (23:49)
[2024-06-12] VITALS (9 sets, daily range): BP systolic 108–150; BP diastolic 56–80; PULSE 56–118; RESP 16–20; TEMP 97.5–98; O2SAT 91–98
[2024-06-12 06:41] LABS: Basophils # (auto) 0.1 10 ^3/uL (0-0.2); Eosinophils # (auto) 0.1 10 ^3/uL (0-0.8); Monocytes # (auto) 0.9 10 ^3/uL (0-1.3)
[2024-06-12 06:43] LABS: Basophils % (auto) 1.1 % (0.0-2.0); Eosinophils % (auto) 1.5 % (0.0-7.0); Hematocrit 40.7 % (41.0-53.0); Hemoglobin 13.6 g/dL (13.5-17.5); Lymphocytes # (auto) 1.6 10 ^3/uL (0.4-5.4); Lymphocytes % (auto) 20.3 % (10.0-50.0); Mean Corpuscular Hgb Conc. 33.4 g/dL (32.0-36.0); Mean Corpuscular Volume 80.8 fL (80.0-100.0); Monocytes % (auto) 11.5 % (0.0-12.0); Neutrophils % (auto) 65.6 % (37.0-80.0); Nucleated Red Blood Cells % 0.2 %; Platelet Count (auto) 264 10^3/uL (140-450); Red Blood Cells 5.04 10^6/uL (4.5-5.90); Red Cell Distribution Width 16.8 % (11.8-14.3); White Blood Cell 7.7 10^3/uL (4.4-10.8)
[2024-06-12 06:50] LABS: Anion Gap 11 (5-15); Carbon Dioxide 24 mmol/L (20-31); Chloride 106 mmol/L (98-107); Potassium 3.8 mmol/L (3.5-5.1); Sodium 141 mmol/L (136-145)
[2024-06-12 06:52] LABS: Calcium 9.1 mg/dL (8.7-10.4)
[2024-06-12 06:57] LABS: BUN/Creatinine Ratio 12.3 (10.0-20.0); Blood Urea Nitrogen 15 mg/dL (9-23); Magnesium 1.7 mg/dL (1.6-2.6)
[2024-06-12 07:08] LABS: Glucose 130 mg/dL (74-106)
--- NOTE | 2024-06-12 08:29 | ECG ---
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
[2024-06-12] MEDS ORDERED: cefTRIAXone 1GM/50ML D5W 50 ML IV SCH (09:00)
--- NOTE | 2024-06-12 10:07 | DVH ---
EXAM: XY CHEST PORTABLE Indication: CHF Technique: Single frontal view of the chest was obtained Comparison: XY CHEST XRAY 1 VIEW on DOS: 06/10/24 FINDINGS: Lines and Tubes: None Lungs: Pulmonary vascular congestion Pleura: No effusion. No pneumothorax. Cardiomediastinal contours: Cardiomegaly. Bones: No acute osseous abnormality. IMPRESSION: Cardiomegaly with pulmonary vascular congestion.
--- NOTE | 2024-06-12 10:23 | DVHPN2 ---
Progress Note Date Seen: Jun 12, 2024 Medical Necessity Reason Pt with a Central, PICC or Fol: Yes The following are medically ne: Nicolas Catheter Reason for nicolas catheter: Strict I&O Subjective Patient reports: No new complaints Review of Systems: HEENT:Normal, CVS:Normal, RESPIRATORY:Normal, GI:Normal, :Normal, MSK:Normal, NEURO:Normal Objective vital signs Vital Sign Date Time Temp Pulse Resp B/P (MAP) Pulse Ox O2 Delivery O2 Flow Rate FiO2 06/12/24 06:36 110/62 06/12/24 06:00 94 Room Air* 0 21 06/12/24 05:00 98.0 56 16 98.0 Total Intake and Output 06/11/24 06/11/24 06/12/24 15:00 23:00 07:00 Intake Total 204 ml 200 ml Output Total 1545 ml Balance 204 ml -1345 ml medications Current Medications Medications Dose Ordered Sig/Nidia Route Start Time Stop Time Status Last Admin Dose Admin Ondansetron HCl 4 mg Q4HP PRN IV 06/11/24 03:45 Acetaminophen 650 mg Q6HP PRN PO 06/11/24 03:45 Nitroglycerin 0.4 mg Q5MINP PRN SL 06/11/24 03:45 Atorvastatin Calcium 40 mg HS PO 06/11/24 22:00 06/11/24 23:49 40 MG Gabapentin 100 mg TID PO 06/11/24 06:00 06/12/24 06:36 100 MG Rivaroxaban 20 mg QPM PO 06/11/24 18:00 06/11/24 19:05 20 MG Carvedilol 6.25 mg Q12HR PO 06/11/24 22:00 Empaglifozin 10 mg DAILY PO 06/12/24 10:00 Spironolactone 12.5 mg DAILY PO 06/12/24 10:00 Valsartan 40 mg DAILY PO 06/12/24 10:00 Furosemide 40 mg BIDD IV 06/11/24 18:00 06/12/24 06:36 40 MG Saccharomyces Boulardii 250 mg DAILY PO 06/12/24 10:00 Cefazolin Sodium 50 ml @ 100 mls/hr Q8HR IV 06/11/24 22:00 06/12/24 06:00 100 MLS/HR Examination: GENERAL:Normal, HEENT:Normal, NECK:Normal, LUNGS:Normal, CVS:Normal, ABDOMEN:Normal, MSK:Normal, MSK:Abnormal (edema++), SKIN:Normal, NEURO:Normal, :Normal laboratory and microbiology Laboratory Tests 06/12/24 05:34 Test 06/12/24 05:34 Range/Units Serum Glucose 130 H 74-106 mg/dL Microbiology Date/Time Source Procedure Growth Status 06/10/24 22:36 Blood Blood Culture - Preliminary NO GROWTH AFTER 24 HOURS OF INCUBATION. Resulted Problem List/Assessment/Plan Problem List/Assessment/Plan #1 acute on chronic systolic heart failure: lasix iv, echo #2 cellulitis both legs: iv ancef #3 morbid obesity #4 tuan: on bipap #5 morbid obesity #6 diarrhea: check c diff #7 functional quadriplegia: pt eval #8 h/o pe: on xarelto #9 a fib with rvr: on amiodarone-stopped #10 bph: on flomax advance care planning- full code-time spent 19 mins Plan discussed with: Patient My Orders My Orders Orders - MIKE PEOPLES MD Procedure Category Date Status Time Clostridium Difficile MEETA 06/11/24 Uncollected Toxin 14:24 Florastor (S. PHA 06/12/24 In Process Boulardii) (Florastor) 10:00 Pt Request For Service PT 06/11/24 Logged 14:24 Cefazolin 1gm/50ml PHA 06/11/24 In Process (Ancef) 22:00 Chest Portable XY 06/12/24 Resulted 06:00 Bipap/Cpap For Sleep RT 06/11/24 Logged Apnea 14:24 * Wound Consult CONS 06/11/24 Transmitted 20:05 Carvedilol Tablet PHA 06/12/24 Verified (Coreg Tablet) 22:00 Furosemide Injection PHA 06/13/24 Verified (Lasix Injection) 10:00 Date of Service: Jun 12, 2024 Billing Provider: MIKE PEOPLES MD Common Visit Codes: [id number] INP/OBS CARE(HIGH) Secondary Visit Codes: [id number] CARE PLAN 30 MINUTES MIKE PEOPLES MD Jun 12, 2024 10:23
[2024-06-12] MEDS: EMPAGLIFLOZIN 10 MG TAB PO SCH (11:17)
[2024-06-12] MEDS: FLORASTOR (S. BOULARDII) 250 MG CAP PO SCH (11:20)
[2024-06-12] MEDS: SPIRONOLACTONE 25 MG TAB PO SCH (11:20)
[2024-06-12] MEDS: VALSARTAN 80 MG TAB PO SCH (15:36)
--- NOTE | 2024-06-12 19:23 | DVHPN2 ---
Consult Progress Note Date Seen: Jun 12, 2024 Subjective Patient reports: Feels better Review of Systems: CVS:Normal, RESPIRATORY:Normal, NEURO:Normal Objective vital signs Vital Sign Date Time Temp Pulse Resp B/P (MAP) Pulse Ox O2 Delivery O2 Flow Rate FiO2 06/12/24 17:00 97.8 65 20 122/79 (93) 91 97.8 06/12/24 08:00 Nasal Cannula* 3 32 Total Intake and Output 06/11/24 06/11/24 06/12/24 14:59 22:59 06:59 Intake Total 222 ml 200 ml Output Total 1545 ml Balance 222 ml -1345 ml medications Current Medications Medications Dose Ordered Sig/Nidia Route Start Time Stop Time Status Last Admin Dose Admin Ondansetron HCl 4 mg Q4HP PRN IV 06/11/24 03:45 Acetaminophen 650 mg Q6HP PRN PO 06/11/24 03:45 Nitroglycerin 0.4 mg Q5MINP PRN SL 06/11/24 03:45 Atorvastatin Calcium 40 mg HS PO 06/11/24 22:00 06/11/24 23:49 40 MG Gabapentin 100 mg TID PO 06/11/24 06:00 06/12/24 15:27 100 MG Rivaroxaban 20 mg QPM PO 06/11/24 18:00 06/12/24 19:01 20 MG Empaglifozin 10 mg DAILY PO 06/12/24 10:00 06/12/24 11:17 10 MG Spironolactone 12.5 mg DAILY PO 06/12/24 10:00 06/12/24 11:20 12.5 MG Valsartan 40 mg DAILY PO 06/12/24 10:00 06/12/24 15:36 40 MG Saccharomyces Boulardii 250 mg DAILY PO 06/12/24 10:00 06/12/24 11:20 250 MG Cefazolin Sodium 50 ml @ 100 mls/hr Q8HR IV 06/11/24 22:00 06/12/24 15:27 100 MLS/HR Carvedilol 3.125 mg Q12HR PO 06/12/24 22:00 Furosemide 40 mg DAILY IV 06/13/24 10:00 Examination: GENERAL:Abnormal (Morbidly obese), LUNGS:Abnormal (Bibasilar crackles), CVS:Normal (A-fib controlled rate), NEURO:Normal laboratory and microbiology Laboratory Tests 06/12/24 05:34 Test 06/12/24 05:34 Range/Units Serum Glucose 130 H 74-106 mg/dL Problem List/Assessment/Plan Problem List/Assessment/Plan Acute on chronic decompensated HFrEF, newly diagnosed Atrial fibrillation with rapid ventricular response, newly diagnosed Hx of bilateral PE with current Xarelto therapy (2011) Biventricular heart failure Bilateral lower extremity cellulitis Cannabinoid use Morbid obesity Plan/Recommendation (Dr. Menezes) * Echocardiogram revealed EF 30% with severe LV/RV dysfunction * Preload and afterload reduction as tolerated * Strict I&Os. Daily weight. Fluid restriction * Continue GDMT for HFrEF, uptitrate as tolerated * Rate control, continue with beta-thomas * NOAC therapy, continue Xarelto therapy * Antiarrhythmics, contraindicated * Replete electrolytes as necessary, K>4 and Mg>2 * Monitor ECG changes and notify * Follow-up with Cardiology at [facility] * Consider outpatient STEPHON and DC cardioversion * Continue GDMT for CHF. If no improvement on LVEF with three months of medical therapy, patient may qualify for AICD implantation Kindly call if in need to continue following up. We will sign off at this time. Thank you for allowing us to participate in this patient's care. This medical document was created using an electronic medical record system with voice recognition software and computerized dictation system. Although this document has been carefully reviewed, there might still be some phonetic and typographical errors. Occasional wrong-word or ``sound-alike substitutions may have occurred due to the inherent limitations of voice recognition software. These areas are purely typographical due to imperfections of the software programs and do not reflect any compromise in the patient's medical care. Please read the chart carefully and recognize, using context, where these substitutions have occurred. Plan discussed with: Patient, Other Date of Service: Jun 12, 2024 Billing Provider: VAHID GRIJALVA Cardiology Common Codes: [id number] HOSP CARE(High VAHID GRIJALVA Jun 12, 2024 19:23
[2024-06-12] MEDS: MAGNESIUM SULFATE 1GM/100ML 100 ML IV ONE (19:30)
[2024-06-12] MEDS: CARVEDILOL 3.125 MG TAB PO SCH (22:40)
[2024-06-13] VITALS (12 sets, daily range): BP systolic 101–137; BP diastolic 57–80; PULSE 64–117; RESP 16–19; TEMP 98–99.6; O2SAT 3–100
[2024-06-13 06:30] LABS: Chloride 102 mmol/L (98-107); Potassium 3.6 mmol/L (3.5-5.1); Sodium 141 mmol/L (136-145)
[2024-06-13 06:31] LABS: Anion Gap 10 (5-15); Calcium 9.1 mg/dL (8.7-10.4); Carbon Dioxide 29 mmol/L (20-31)
[2024-06-13 06:36] LABS: BUN/Creatinine Ratio 15.3 (10.0-20.0); Blood Urea Nitrogen 20 mg/dL (9-23)
[2024-06-13 06:37] LABS: Magnesium 1.7 mg/dL (1.6-2.6)
[2024-06-13 06:39] LABS: Glucose 127 mg/dL (74-106)
[2024-06-13] MEDS: POTASSIUM CHL 20 Meq TABLET PO ONE (07:06)
[2024-06-13] MEDS: MAGNESIUM SULFATE 1GM/100ML 100 ML IV ONE (08:52)
[2024-06-13] MEDS ORDERED: FUROSEMIDE 40 MG/4 ML VIAL IV SCH (10:00)
--- NOTE | 2024-06-13 10:47 | DVHPN2 ---
Progress Note Date Seen: Jun 13, 2024 Medical Necessity Reason Pt with a Central, PICC or Fol: Yes The following are medically ne: Nicolas Catheter Reason for nicolas catheter: Strict I&O Subjective Patient reports: No new complaints Review of Systems: HEENT:Normal, CVS:Normal, RESPIRATORY:Normal, GI:Normal, :Normal, MSK:Normal, NEURO:Normal Objective vital signs Vital Sign Date Time Temp Pulse Resp B/P (MAP) Pulse Ox O2 Delivery O2 Flow Rate FiO2 06/13/24 09:46 98.0 70 16 129/78 (95) 94 98.0 06/13/24 00:25 Nasal BiPAP Mask 30 06/12/24 08:00 3 Total Intake and Output 06/12/24 06/12/24 06/13/24 15:00 23:00 07:00 Intake Total 640 ml 550 ml Output Total 1200 ml 1200 ml Balance -560 ml -650 ml medications Current Medications Medications Dose Ordered Sig/Nidia Route Start Time Stop Time Status Last Admin Dose Admin Ondansetron HCl 4 mg Q4HP PRN IV 06/11/24 03:45 Acetaminophen 650 mg Q6HP PRN PO 06/11/24 03:45 Nitroglycerin 0.4 mg Q5MINP PRN SL 06/11/24 03:45 Atorvastatin Calcium 40 mg HS PO 06/11/24 22:00 06/12/24 22:33 40 MG Gabapentin 100 mg TID PO 06/11/24 06:00 06/13/24 07:06 100 MG Rivaroxaban 20 mg QPM PO 06/11/24 18:00 06/12/24 19:01 20 MG Empaglifozin 10 mg DAILY PO 06/12/24 10:00 06/12/24 11:17 10 MG Spironolactone 12.5 mg DAILY PO 06/12/24 10:00 06/12/24 11:20 12.5 MG Valsartan 40 mg DAILY PO 06/12/24 10:00 06/12/24 15:36 40 MG Saccharomyces Boulardii 250 mg DAILY PO 06/12/24 10:00 06/12/24 11:20 250 MG Cefazolin Sodium 50 ml @ 100 mls/hr Q8HR IV 06/11/24 22:00 06/13/24 06:00 100 MLS/HR Carvedilol 3.125 mg Q12HR PO 06/12/24 22:00 06/12/24 22:40 3.125 MG Examination: GENERAL:Normal, HEENT:Normal, NECK:Normal, LUNGS:Normal, LUNGS:Abnormal (on oxygen), CVS:Normal, ABDOMEN:Normal, MSK:Normal, SKIN:Normal, NEURO:Normal, :Normal laboratory and microbiology Laboratory Tests 06/13/24 05:02 06/12/24 05:34 Test 06/13/24 05:02 Range/Units Serum Glucose 127 H 74-106 mg/dL Microbiology Date/Time Source Procedure Growth Status 06/10/24 22:36 Blood Blood Culture - Preliminary NO GROWTH AFTER 48 HOURS OF INCUBATION. Resulted Problem List/Assessment/Plan Problem List/Assessment/Plan #1 acute on chronic systolic heart failure: lasix iv #2 cellulitis both legs: keflex #3 morbid obesity #4 tuan: on bipap #6 diarrhea: check c diff #7 functional quadriplegia: pt eval #8 h/o pe: on xarelto #9 a fib with rvr: on amiodarone-stopped #10 bph: on flomax advance care planning- full code-time spent 19 mins Plan discussed with: Patient My Orders My Orders Orders - MIKE PEOPLES MD Procedure Category Date Status Time Bipap/Cpap For Sleep RT 06/13/24 Logged Apnea 03:36 Dietary Evaluation Review Comments: 1. Accomondate his likes/dislike for a Cardiac diet. dislike soy milk, only accept 2% milk. 2. Consider d/c lipitor d/t low chol and low LDL per lab 3. Consider Marcelino BID for promote wound healing. 4. CCHO-75 g, Cardiac Diet for tight glucose control and promoting wound healing. Expected Outcomes/Goals: gradual wt loss. Date of Service: Jun 13, 2024 Billing Provider: MIKE PEOPLES MD Common Visit Codes: [id number] INP/OBS CARE(HIGH) MIKE PEOPLES MD Jun 13, 2024 10:47
[2024-06-13] MEDS: FUROSEMIDE 20 MG/2 ML VIAL IV ONE (11:14)
[2024-06-13] MEDS: DULoxetine HCL 30 MG CAP PO ONE (11:14)
[2024-06-13] MEDS: CEPHALEXIN 250 MG CAP PO SCH (14:23)
[2024-06-14] VITALS (10 sets, daily range): BP systolic 95–128; BP diastolic 60–85; PULSE 64–112; RESP 16–91; TEMP 97.6–98.6; O2SAT 91–99
[2024-06-14] MEDS: FUROSEMIDE 20 MG/2 ML VIAL IV SCH (10:03)
[2024-06-14] MEDS: DULoxetine HCL 30 MG CAP PO SCH (10:04)
--- NOTE | 2024-06-14 10:50 | DVHDS2 ---
Discharge Summary Date of Admission Jun 11, 2024 at 03:45 Date of Discharge: Jun 14, 2024 Labs/Diagnostic Data: Laboratory Results Test 06/13/24 05:02 06/12/24 05:34 06/11/24 01:48 06/11/24 00:24 Sodium Level 141 mmol/L (136-145) Potassium Level 3.6 mmol/L (3.5-5.1) Chloride Level 102 mmol/L (98-107) Carbon Dioxide Level 29 mmol/L (20-31) Anion Gap 10 (5-15) Blood Urea Nitrogen 20 mg/dL (9-23) Creatinine 1.31 mg/dL (0.700-1.30) Glomerular Filtration Rate Calc 57 mL/min (>90) BUN/Creatinine Ratio 15.3 (10.0-20.0) Serum Glucose 127 mg/dL (74-106) Calcium Level 9.1 mg/dL (8.7-10.4) Magnesium Level 1.7 mg/dL (1.6-2.6) White Blood Count 7.7 10^3/uL (4.4-10.8) Red Blood Count 5.04 10^6/uL (4.5-5.90) Hemoglobin 13.6 g/dL (13.5-17.5) Hematocrit 40.7 % (41.0-53.0) Mean Corpuscular Volume 80.8 fL (80.0-100.0) Mean Corpuscular Hemoglobin 27.0 pg (28.0-32.0) Mean Corpuscular Hemoglobin Concent 33.4 g/dL (32.0-36.0) Red Cell Distribution Width 16.8 % (11.8-14.3) Platelet Count 264 10^3/uL (140-450) Mean Platelet Volume 9.9 fL (6.9-10.8) Neutrophils (%) (Auto) 65.6 % (37.0-80.0) Lymphocytes (%) (Auto) 20.3 % (10.0-50.0) Monocytes (%) (Auto) 11.5 % (0.0-12.0) Eosinophils (%) (Auto) 1.5 % (0.0-7.0) Basophils (%) (Auto) 1.1 % (0.0-2.0) Neutrophils # (Auto) 5.0 10 ^3/uL (1.6-8.6) Lymphocytes # (Auto) 1.6 10 ^3/uL (0.4-5.4) Monocytes # (Auto) 0.9 10 ^3/uL (0-1.3) Eosinophils # (Auto) 0.1 10 ^3/uL (0-0.8) Basophils # (Auto) 0.1 10 ^3/uL (0-0.2) Nucleated Red Blood Cells 0.2 % Troponin I High Sensitivity 26 ng/L (</=54) Triglycerides Level 100 mg/dL (< 150) Cholesterol Level 108 mg/dL (< 200) LDL Cholesterol 69 mg/dL (< 100) HDL Cholesterol 26 mg/dL (40-59) Blood Gas Specimen Type Arterial Blood Gas Sample Site Right radial Blood Gas Patient Temperature 37.0 Arterial Blood Date Drawn [id number] Arterial Blood pH 7.409 (7.350-7.450) Arterial Blood Partial Pressure CO2 34.8 mmHg (35.0-48.0) Arterial Blood Partial Pressure O2 74.9 mmHg (83.0-108.0) Arterial Blood HCO3 21.5 mmol/L (21.0-28.0) Arterial Blood Oxygen Saturation 94.5 % (94.0-98.0) Arterial Blood Base Excess -2.4 mmol/L (-2.0-3.0) Arterial Blood Oxyhemoglobin 92.6 % (94.0-98.0) Arterial Blood Carboxyhemoglobin 1.4 % (0.5-1.5) Arterial Blood Methemoglobin 0.6 % (0.0-1.5) Devante Test Modified Blood Gas Total Hemoglobin 15.40 g/dL (13.5-17.5) Blood Gas Liter Flow 2.00 Blood Gas Modality Nasal cannula FiO2 % 24.0 Test 06/10/24 23:13 06/10/24 22:35 Urine Color Yellow (Yellow) Urine Clarity Turbid (Clear) Urine pH 5.0 (5.0-9.0) Urine Specific [place] 1.029 (1.001-1.035) Urine Protein 1+ (Negative) Urine Ketones Trace (Negative) Urine Blood 2+ /uL (Negative) Urine Nitrite Negative (Negative) Urine Bilirubin Negative (Negative) Urine Urobilinogen Normal mg/dL (Negative) Urine Leukocyte Esterase Negative /uL (Negative) Urine RBC 240 /hpf (0 - 3) Urine Microscopic WBC 2 /HPF (0-3) Urine Squamous Epithelial Cells Mod /hpf (<5) Urine Bacteria Few /hpf (None Seen) Urine Mucus Few (None Seen) Urine Glucose Normal mg/dL (Normal) Urine Opiates Screen Neg (NEGATIVE) Urine Fentanyl Screen Neg (NEGATIVE) Urine Barbiturates Screen Neg (NEGATIVE) Urine Phencyclidine Screen Neg (NEGATIVE) Urine Amphetamines Screen Neg (NEGATIVE) Urine Benzodiazepines Screen Neg (NEGATIVE) Urine Cocaine Screen Neg (NEGATIVE) Urine Cannabinoids Screen Pos (NEGATIVE) Influenza Type A Antigen Negative (Negative) Influenza Type B Antigen Negative (Negative) SARS-CoV-2 Antigen (Rapid) Negative (NEGATIVE) Prothrombin Time 14.4 sec (9.3-11.8) Prothrombin Time INR 1.41 (0.9-1.15) Hemoglobin A1c 6.7 % A1C (<5.7) Lactic Acid Level 1.6 mmol/L (0.4-2.0) Total Bilirubin 1.5 mg/dL (0.2-1.0) Aspartate Amino Transferase (AST) 26 U/L (13-40) Alanine Aminotransferase (ALT) 22 U/L (7-40) Alkaline Phosphatase 142 U/L (46-116) B-Type Natriuretic Peptide 294.26 pg/mL (0-100) Total Protein 7.0 g/dL (5.7-8.2) Albumin 4.0 g/dL (3.2-4.8) Thyroid Stimulating Hormone (TSH) 1.86 uIU/mL (0.55-4.78) Plasma/Serum Blood Alcohol < 3.0 mg/dL (<10) Other Laboratory Tests 06/13/24 05:02 06/12/24 05:34 Brief Hx & Hospital Course: see dictated note Condition at Discharge: Fair Final Diagnosis/Problems List chf Discharge Disposition: Jail Facility Discharge Instruct/Medications Diet: Cardiac 2g Na,low cholest Activity: No Restrictions, As Tolerated Follow Up/Referral: fu with pcp in 1 wk Medications: per jun Discharge Statement: "Patient was advised to return to the ER or call 911 if any headaches, dizziness, shortness of breath, chest pain, abdominal pain, bleeding, fevers, or worsening of medical condition. Patient was counseled about treatment plan, medications, possible side effects, patientverbalized understanding. All questions were answered to the best of my ability. This discharge took greater then 30 minutes in planning, reviewing documentation, counseling the patient, and discussing with other team members." ASSESSMENT ASSESSMENT Assessment chf Date of Service: Jun 14, 2024 Billing Provider: MIKE PEOPLES MD Common Visit Codes: [id number] DISCH DAY >30min MIKE PEOPLES MD Jun 14, 2024 10:50
--- NOTE | 2024-06-14 11:12 | DVHDS ---
DATE OF DISCHARGE: 06/14/2024 DATE OF TRANSFER TO SNF: 06/14/2024. HISTORY OF PRESENT ILLNESS: The patient is a 73-year-old gentleman who was admitted with history of increasing shortness of breath and generalized weakness and was noted to have atrial fibrillation with rapid ventricular rate. He also has history of dyslipidemia and pulmonary embolism. HOSPITAL COURSE: The patient had a chest x-ray that showed evidence of congestive heart failure. He was diuresed with intravenous Lasix. The patient had a Doppler of lower extremity that was negative for DVT. Blood cultures were negative. The patient had an echocardiogram that showed ejection fraction of 30% with severe LV dysfunction. The patient will now be transferred to a long-term facility. He also has cellulitis of his lower extremity. FINAL DIAGNOSES: Therefore, * Acute on chronic systolic heart failure. * Cellulitis of both legs. * Morbid obesity. * Obstructive sleep apnea. * Functional quadriplegia. * History of pulmonary embolism. * Atrial fibrillation with rapid ventricular rate. * Benign prostatic hypertrophy. * Hyperlipidemia. * Questionable chronic kidney disease, stage 2/3. Time spent in discharge planning and review of plan with the patient, nursing and paperwork was 38 minutes. MD PABLO Martinez/SUN TID: [id number] RECEIPT: [id number]
[2024-06-15] VITALS (8 sets, daily range): BP systolic 107–139; BP diastolic 59–110; PULSE 53–120; RESP 16–22; TEMP 36.4; O2SAT 92–96
--- NOTE | 2024-06-15 12:06 | DVHPN2 ---
Subjective The patient seen and examined at bedside. The patient d/c was hold yesterday due to SNF was not available yet. Reviewed: Care Plan, H&P, Labs, Medications, Previous Orders Changes from previous H/P or p: No Changes Objective Vitals Vital Signs Date Time Temp Pulse Resp B/P (MAP) Pulse Ox O2 Delivery O2 Flow Rate FiO2 06/15/24 10:31 139/110 06/15/24 10:29 120 06/15/24 09:00 97.5 17 93 97.5 06/15/24 08:00 Nasal Cannula* 3 32 Intake/Output Intake and Output 06/15/24 07:00 Intake Total 1240 ml Output Total 850 ml Balance 390 ml Intake Oral 1240 ml Output Urine Total 850 ml General Appearance: Alert, Cooperative, No acute distress HEENT: Atraumatic, PERRLA, EOMI, Mucous membr. moist/pink Neck: Supple Lungs: Clear to auscultation, Normal air movement Cardiovascular: Regular rate, Normal S1, Normal S2, No murmurs, Gallops, Rubs Abdomen: Normal bowel sounds, Soft, No tenderness Neuro: Cranial nerves 3-12 NL Psych/Mental Status: Mental status NL Medications Current Medications Medications Dose Ordered Sig/Nidia Route Start Time Stop Time Status Last Admin Dose Admin Ondansetron HCl 4 mg Q4HP PRN IV 06/11/24 03:45 Acetaminophen 650 mg Q6HP PRN PO 06/11/24 03:45 Nitroglycerin 0.4 mg Q5MINP PRN SL 06/11/24 03:45 Atorvastatin Calcium 40 mg HS PO 06/11/24 22:00 06/14/24 21:50 40 MG Gabapentin 100 mg TID PO 06/11/24 06:00 06/15/24 05:49 100 MG Rivaroxaban 20 mg QPM PO 06/11/24 18:00 06/14/24 18:05 20 MG Empaglifozin 10 mg DAILY PO 06/12/24 10:00 06/15/24 10:30 10 MG Spironolactone 12.5 mg DAILY PO 06/12/24 10:00 06/15/24 10:31 12.5 MG Valsartan 40 mg DAILY PO 06/12/24 10:00 06/15/24 10:27 40 MG Saccharomyces Boulardii 250 mg DAILY PO 06/12/24 10:00 06/15/24 10:31 250 MG Carvedilol 3.125 mg Q12HR PO 06/12/24 22:00 06/15/24 10:29 3.125 MG Furosemide 20 mg DAILY IV 06/14/24 10:00 06/15/24 10:31 20 MG Duloxetine HCl 30 mg DAILY PO 06/14/24 10:00 06/15/24 10:32 30 MG Cephalexin 500 mg Q6HR PO 06/13/24 12:00 06/15/24 05:49 500 MG Laboratory Results Laboratory Tests 06/12/24 05:34 06/13/24 05:02 Urinalysis Test 06/10/24 23:13 Urine Color Yellow (Yellow) Urine Clarity Turbid (Clear) H Urine pH 5.0 (5.0-9.0) Urine Specific [place] 1.029 (1.001-1.035) Urine Protein 1+ (Negative) H Urine Ketones Trace (Negative) Urine Blood 2+ /uL (Negative) H Urine Nitrite Negative (Negative) Urine Bilirubin Negative (Negative) Urine Urobilinogen Normal mg/dL (Negative) Urine Leukocyte Esterase Negative /uL (Negative) Urine RBC 240 /hpf (0 - 3) Urine Microscopic WBC 2 /HPF (0-3) Urine Squamous Epithelial Cells Mod /hpf (<5) Urine Bacteria Few /hpf (None Seen) H Urine Mucus Few (None Seen) Urine Glucose Normal mg/dL (Normal) Microbiology Microbiology Date/Time Source Procedure Growth Status 06/10/24 22:36 Blood Blood Culture - Preliminary NO GROWTH AFTER 72 HOURS OF INCUBATION. Resulted Labs and/or images reviewed: Labs reviewed by me Assessment/Plan Assessment/Plan #1 acute on chronic systolic heart failure: lasix iv #2 cellulitis both legs: keflex #3 morbid obesity #4 tuan: on bipap #6 diarrhea: check c diff #7 functional quadriplegia: pt eval #8 h/o pe: on xarelto #9 a fib with rvr: on amiodarone-stopped #10 bph: on flomax The patient has been accept to SNF today. Will d/c This medical document was created using an electronic medical record system with [employer] direct computerized dictation system. Although this document has been carefully reviewed, there may still be some phonetic and typographical errors. These areas are purely typographical due to imperfections of the software programs, and do not reflect any compromise in the patient's medical care. Plan discussed with: Patient Date of Service: Jun 15, 2024 Billing Provider: CECE MORALES MD Common Visit Codes: [id number] INP/OBS CARE(HIGH) CECE MORALES MD Jun 15, 2024 12:06
== END 2024-06-15 19:24 | DRG 291 ==
LOC: ER 21:29 → OVERFLOW 06-11 03:45 → TELE-CENTR 06-11 18:08
PROVIDERS: ADMIT Internal Medicine; ATTEND Internal Medicine
PROC: 5A09357 Assistance with Respiratory Ventilation, Less than 24 Consecutive Hours, Continuous Positive Airway Pressure (ICD-10-PCS; principal; 2024-06-13)
DX: I50.43 Acute on chronic combined systolic (congestive) and diastolic (congestive) heart failure (principal); R53.2 Functional quadriplegia; L03.115 Cellulitis of right lower limb; L03.116 Cellulitis of left lower limb; Z68.43 Body mass index [BMI] 50.0-59.9, adult; E66.01 Morbid (severe) obesity due to excess calories; Z20.822 Contact with and (suspected) exposure to COVID-19; G47.33 Obstructive sleep apnea (adult) (pediatric); I48.91 Unspecified atrial fibrillation; N40.0 Benign prostatic hyperplasia without lower urinary tract symptoms; E78.5 Hyperlipidemia, unspecified; G62.9 Polyneuropathy, unspecified; N18.30 Chronic kidney disease, stage 3 unspecified; Z88.5 Allergy status to narcotic agent; Z79.01 Long term (current) use of anticoagulants; Z86.711 Personal history of pulmonary embolism; Z79.899 Other long term (current) drug therapy
CPT/HCPCS: 36415; 36600; 71045; 80048; 80053; 80061; 80307; 80320; 81001; 82805; 83036; 83605; 83735; 83880; 84443; 84484; 85025; 85610; 87040; 87426; 87804; 93005; 93306; 93970; 94660; 96374; 97110; 97163; 97530; G0378